=== PATIENT | female | born 1965 | race American Indian/Alaskan Native ===

== ENCOUNTER 2016-12-26 05:54 | Day surgery (SDC) | payer MEDICARE ==
[2016-12-26] MEDS ORDERED: NACL 0.9% 1000 ML 1,000 ML ONE (07:28)
--- NOTE | 2016-12-26 07:41 | Discharge Summary ---
Providers - Providers Date of discharge: 12/26/16 Attending physician: ANDREIA TORRES Hospitalization Condition: Good Procedures: egd Disposition: DC- TO HOME OR SELFCARE Core Measure Documentation - Palliative Care Palliative Care/ Comfort Measures: Not Applicable - Core Measures Any of the following diagnoses?: none Exam - Physical Exam Narrative exam: unchanged from pre-op Plan Activity: no restrictions Diet: regular
--- NOTE | 2016-12-26 07:42 | Operative Report ---
Operative Report Operative Report: OPERATIVE REPORT - EGD DATE 12/26/16 SURGERY: Upper endoscopy. SURGEON: Esther Phipps M.D. DATA SME: n/a PRE OP DX:dyspepsia POST OP DX:hiatal hernia TYPE OF ANESTHESIA: MAC. ESTIMATED BLOOD LOSS: None. COMPLICATIONS: None. SPECIMENS REMOVED: None. FINDINGS: 1. Small hiatal hernia. 2. Otherwise, normal esophagus, stomach and first portion of duodenum. INDICATIONS:INDICATION FOR PROCEDURE: Patient is a 51-year-old female with a long history of morbid obesity. She is planned to have a weight loss procedure and is here for preoperative planning EGD. PROCEDURE DETAILS: After consent was reviewed, patient was taken back to the operating room where patient was placed in the left lateral decubitus position and a bite block was placed in the mouth. After a time-out was called, MAC anesthesia was initiated. I then passed the endoscope into her oropharynx, into her esophagus, visualized the entire esophagus, which was all within normal limits. I then visualized the stomach and the first portion of the duodenum and there were no abnormalities I could clearly visualize. I then retroflexed the scope in the stomach and visualized the hiatus and I could see a small hiatal hernia. I then desufflated the stomach and removed the endoscope. Patient tolerated procedure well and was transferred to recovery room in good and stable condition.
[2016-12-26] MEDS ORDERED: DIPRIVAN 10 MG/ML IV ONE (08:02)
--- NOTE | 2016-12-26 08:02 | Anesthesia Consultation ---
Anesthesia Consult and Med Hx Date of service: 12/26/16 - Airway Anesthetic Teeth Evaluation: Poor (missing) ROM Head & Neck: Adequate Mental/Hyoid Distance: Adequate Mallampati Class: Class II Intubation Access Assessment: Probably Good - Pulmonary Exam CTA: Yes - Cardiac Exam Cardiac Exam: RRR - Pre-Operative Health Status ASA Pre-Surgery Classification: ASA3 Proposed Anesthetic Plan: MAC - Pre-Anesthesia Comment Pre-Anesthesia Comments: spinal stenosi, back pain with tingling right foot - Cardiovascular System Hx Hypertension: Yes - Central Nervous System Hx Back Pain: Yes - Other Systems Hx Alcohol Use: Yes (OCCASIONAL) Hx Substance Use: Yes (MARIJUANA/ LAST USE 10/2016)
--- NOTE | 2016-12-26 08:03 | Anesthesia Day of Surgery ---
Anesthesia Day of Surgery - Day of Surgery Patient Examined: Yes Patient H&P Reviewed: Yes Patient is NPO: Yes
[2016-12-26] MEDS ORDERED: WATER FOR IRRIG STERILE IR ONE (08:24)
[2016-12-26 09:19] VITALS: BP 159/54
[2016-12-26] MEDS ORDERED: NACL 0.9% 1000 ML 1,000 ML IV SCH (12:00)
--- NOTE | 2016-12-26 12:58 | Post Anesthesia Evaluation ---
- Post Anesthesia Evaluation Patient Participated: Yes Airway Patent: Yes Stable Respiratory Function: Yes Nausea/Vomiting: No Temp > 96.8F: Yes Pain Manageable: Yes Adequeate Hydration: Yes Anesthesia Complications: No Block Receding Appropriately: Not Applicable Patient on Ventilator: No
== END 2016-12-26 05:55 | disposition home or self-care (01) ==
LOC: GIO 05:54
PROVIDERS: ATTEND Surgery
DX: K44.9 Diaphragmatic hernia without obstruction or gangrene (principal); I10 Essential (primary) hypertension; F41.9 Anxiety disorder, unspecified; F12.21 Cannabis dependence, in remission; K21.9 Gastro-esophageal reflux disease without esophagitis; E66.01 Morbid (severe) obesity due to excess calories; Z68.42 Body mass index [BMI] 45.0-49.9, adult; Z79.899 Other long term (current) drug therapy; Z90.710 Acquired absence of both cervix and uterus; Z98.890 Other specified postprocedural states; Z72.89 Other problems related to lifestyle; Z88.8 Allergy status to other drugs, medicaments and biological substances; Z82.49 Family history of ischemic heart disease and other diseases of the circulatory system
CPT/HCPCS: 43235; J2704; J7030

== ENCOUNTER 2017-11-25 10:48 | Day surgery (SDC) | payer MEDICARE ==
[~2017-11-25 10:48] MED LIST: NACL 0.9% 1000 ML 1,000 ML IV SCH
[2017-11-25] MEDS ORDERED: HURRICAINE ONE 20% TOPICAL SPRAY MM (13:12)
--- NOTE | 2017-11-25 13:16 | Anesthesia Consultation ---
Anesthesia Consult and Med Hx Date of service: 11/25/17 - Airway Anesthetic Teeth Evaluation: Good (missing left upper ) ROM Head & Neck: Adequate Mental/Hyoid Distance: Adequate Mallampati Class: Class II Intubation Access Assessment: Probably Good - Pulmonary Exam CTA: Yes - Cardiac Exam Cardiac Exam: RRR - Pre-Operative Health Status ASA Pre-Surgery Classification: ASA2 Proposed Anesthetic Plan: MAC - Pulmonary Hx Smoking: Yes (ONLY SMOKED TEENAGER) - Cardiovascular System Hx Hypertension: Yes - Central Nervous System Hx Back Pain: Yes (sciatica mainly on right.) - Gastrointestinal Hx Gastroesophageal Reflux Disease: Yes
--- NOTE | 2017-11-25 13:17 | Anesthesia Day of Surgery ---
Anesthesia Day of Surgery - Day of Surgery Patient Examined: Yes Patient H&P Reviewed: Yes Patient is NPO: Yes
[2017-11-25] MEDS ORDERED: DIPRIVAN 10 MG/ML IV ONE (13:37)
[2017-11-25 14:24] VITALS: BP 159/68
--- NOTE | 2017-11-25 14:38 | Operative Report ---
Operative Report Operative Report: EGD Post bypass DATE: 11/25/17 OPERATIVE REPORT - EGD PREOP DIAGNOSIS: gastric dyspepsia POSTOP DIAGNOSIS: failed GJ anastomosis, exposed darrius at GJ SURGERY: Upper endoscopy. SURGEON: Dr. Nickerson OPERATIONS MANAGER ASSISTANT: Dr. Shara WOMACK TYPE OF ANESTHESIA: MAC. ESTIMATED BLOOD LOSS: None. COMPLICATIONS: None. SPECIMENS REMOVED: None. FINDINGS: 1. normal esophagus 2. gastric pouch - 80ml 3. gastrojejunal anastomosis is 30mm INDICATIONS:INDICATION FOR PROCEDURE: Patient is a 52-year-old s/p gastric bypass one year ago. The patient is here today for evaluation for revisional surgery. The patient is here for a planned EGD for gastric dyspepsia. PROCEDURE DETAILS: After consent was reviewed, patient was taken back to the operating room where patient was placed in the left lateral decubitus position and a bite block was placed in the mouth. After a time-out was called, MAC anesthesia was initiated. I then passed the endoscope into the patients oropharynx, into the esophagus, visualized the entire esophagus, which was all within normal limits. I then visualized the gastric pouch which was about 80ml in size. The gastrojejunal anastomosis was normal at about 30mm. No marginal ulcers were noted. At the GJ anastomotic area there were raised darrius. The proximal portion of the nicky limb was normal. I then desufflated the gastric pouch and removed the endoscope. Patient tolerated procedure well and was transferred to recovery room in good and stable condition. Lisa will be called in to her pharmacy within 24 hrs to help prevent the darrius from causing irritation to the pouch.
--- NOTE | 2017-11-25 14:38 | Discharge Summary ---
Providers - Providers Attending physician: ORIN ELENA Hospitalization Reason for admission: egd Condition: Good Procedures: egd Hospital course: 52 y.o. F presented to the hospital for EGD. Pt tolerated procedure well. She was discharged home same day. Disposition: DC- TO HOME OR SELFCARE Core Measure Documentation - Palliative Care Palliative Care/ Comfort Measures: Not Applicable - Core Measures Any of the following diagnoses?: none Exam - Physical Exam Narrative exam: no changes - Constitutional Vitals: Temp Pulse Resp BP Pulse Ox 98.2 F 59 L 18 159/68 99 11/25/17 13:50 11/25/17 14:20 11/25/17 14:20 11/25/17 14:20 11/25/17 14:20 Plan Activity: no restrictions Additional Instructions: follow up in office to review results. RX for carafate will be sent to pharmacy tomorrow. Follow up with: CUBA JAIN MD [Other] - 7 Days
[2017-11-25] MEDS ORDERED: HURRICAINE ONE 20% TOPICAL SPRAY MM NR (20:00)
== END 2017-11-25 10:49 | disposition home or self-care (01) ==
LOC: GIO 10:48
PROVIDERS: ATTEND Specialist
DX: K91.89 Other postprocedural complications and disorders of digestive system (principal); K21.9 Gastro-esophageal reflux disease without esophagitis; I10 Essential (primary) hypertension; E78.00 Pure hypercholesterolemia, unspecified; F41.9 Anxiety disorder, unspecified; Z98.890 Other specified postprocedural states; Z90.710 Acquired absence of both cervix and uterus; Z98.84 Bariatric surgery status; Z79.899 Other long term (current) drug therapy; Z87.891 Personal history of nicotine dependence; Y83.2 Surgical operation with anastomosis, bypass or graft as the cause of abnormal reaction of the patient, or of later complication, without mention of misadventure at the time of the procedure
CPT/HCPCS: 43235; J2704; J7030

== ENCOUNTER 2018-01-07 11:00 | Outpatient (CLI) | payer MEDICARE | END 2018-01-07 11:01 | disposition home or self-care (01) | LOC: SLR 11:00 | PROVIDERS: ATTEND Otolaryngology | DX: G47.33 Obstructive sleep apnea (adult) (pediatric) (principal); Z88.8 Allergy status to other drugs, medicaments and biological substances | CPT/HCPCS: 95810 ==